=== PATIENT | male | born 1985 | race Caucasian/White ===

== ENCOUNTER 2016-10-17 21:52 | Emergency (ER) | payer BC ==
[~2016-10-17 21:52] MED LIST: ALBUTEROL17 GM INH; MUCINEX D1 TAB.SR1; NO MEDICATIONS; OMNICEF; PREDNISONE PO
[2016-10-17] MEDS ORDERED: NO MEDICATIONS (22:01)
== END 2016-10-17 23:03 | disposition home or self-care (01) ==
LOC: SED 21:52
DX: J20.9 Acute bronchitis, unspecified (principal); J06.9 Acute upper respiratory infection, unspecified; F17.210 Nicotine dependence, cigarettes, uncomplicated; Z88.8 Allergy status to other drugs, medicaments and biological substances
CPT/HCPCS: 99282